=== PATIENT | female | born 1990 | race Caucasian/White ===

== ENCOUNTER 2017-10-02 21:15 | Emergency (ER) | payer SELFPAY ==
[~2017-10-02] VITALS: Ht 154.9 cm; Wt 77.1 kg
[2017-10-02 21:22] VITALS: BP_SYST 139
--- NOTE | 2017-10-02 21:47 | NUR ---
Patient to ER bed 4 to gown for evaluation. Side rails up. Report given to [facility].
--- NOTE | 2017-10-02 21:50 | NUR ---
Patient arrived to ED a/o x 4 with c/o lower back pain 01/17. Patient states that she may have hurt her back while at work. States her pain radiates down bilateral legs. Ambulates with steady gait. Denies obvious trauma. No deformity or bruising noted. Will continue to monitor.
--- NOTE | 2017-10-02 21:55 | NUR ---
ED MD Aldridge at bedside for medical evaluation.
[2017-10-02 22:25] VITALS: BP_SYST 133
--- NOTE | 2017-10-02 22:25 | NUR ---
Patient given written and verbal discharge instructions and verbalizes understanding. ER MD discussed with patient the results and treatment provided. Patient in stable condition. ID arm band removed. Rx of Medrol Dosepak, motrin and tramadol given. Patient educated on pain management and to follow up with PMD. Pain Scale 3/10 tolerable for patient. Opportunity for questions provided and answered. Medication side effect fact sheet provided.
[2017-10-02 22:33] LABS: BILIRUBIN,URINE NEGATIVE (NEGATIVE); BLOOD, URINE NEGATIVE (NEGATIVE); CLARITY/URINE CLEAR (CLEAR); COLOR,URINE YELLOW (YELLOW); GLUCOSE,URINE NEGATIVE (NEGATIVE); KETONES,URINE NEGATIVE (NEGATIVE); LEUKOCYTE ESTERASE ,URINE NEGATIVE (NEGATIVE); NITRITE, URINE NEGATIVE (NEGATIVE); PROTEIN URINE NEGATIVE (NEGATIVE); UROBILINOGEN,URINE 0.2 (0.2-1.0)
== END 2017-10-02 22:25 | disposition home or self-care (01) ==
LOC: SED 21:15
DX: S39.012A Strain of muscle, fascia and tendon of lower back, initial encounter (principal); X50.9XXA Other and unspecified overexertion or strenuous movements or postures, initial encounter; Y93.89 Activity, other specified; Y92.89 Other specified places as the place of occurrence of the external cause; Y99.8 Other external cause status
CPT/HCPCS: 81003; 99283